=== PATIENT | male | born 2000 | race Caucasian/White ===

== ENCOUNTER 2018-05-16 13:18 | Emergency (ER) | payer OTHER ==
[~2018-05-16] VITALS: Ht 190.5 cm; Wt 82.0 kg
[2018-05-16 14:33] LABS: BASOPHILS % 0.4 % (0.0-2.0); EOSINOPHILS % 0.4 % (0.0-5.0); HEMATOCRIT. 46.2 % (42.0-52.0); HEMOGLOBIN. 15.7 g/dL (14.0-18.0); LYMPHOCYTES % 17.1 % (20.0-50.0); MEAN CORPUSCULAR HEMOGLOBIN 30.5 pg (28.0-32.0); MEAN CORPUSCULAR VOLUME 89.8 fL (80.0-94.0); MEAN PLATELET VOLUME 7.5 fl (7.4-10.4); NEUTROPHILS % 77.1 % (40.0-76.0); PLATELET 265 x1000/uL (130-400); RED BLOOD CELL COUNT 5.15 mill/uL (4.7-6.1); RED CELL DISTRIBUTION WIDTH 13.8 % (11.6-14.6)
[2018-05-16 14:38] LABS: CHLORIDE 107 mEq/L (98-107)
[2018-05-16 14:42] LABS: ETHANOL BLOOD < 10 mg/dL
[2018-05-16 21:29] LABS: CLARITY URINE TURBID (CLEAR); COLOR URINE YELLOW (YELLOW); KETONES URINE TRACE (NEGATIVE); LEUKOCYTE ESTERASE URINE NEGATIVE (NEGATIVE); NITRITE URINE NEGATIVE (NEGATIVE); OCCULT BLOOD URINE NEGATIVE (NEGATIVE); PROTEIN URINE NEGATIVE (NEGATIVE); SPECIFIC GRAVITY URINE 1.022 (1.005-1.030); UROBILINOGEN URINE 0.2 E.U./dL (0.2-1.0)
[2018-05-16 21:49] LABS: *AMPHETAMINES SCREEN URINE NEGATIVE (NEGATIVE); *BARBITURATES SCREEN URINE NEGATIVE (NEGATIVE); *BENZODIAZEPINES SCREEN URINE NEGATIVE (NEGATIVE); CANNABINOID URINE SCREEN PRESUMTIVE POSITIVE (NEGATIVE); PHENCYCLIDINE URINE SCREEN NEGATIVE (NEGATIVE)
[2018-05-16 21:50] LABS: *COCAINE SCREEN URINE NEGATIVE (NEGATIVE); METHADONE URINE SCREEN NEGATIVE (NEGATIVE); OPIATES URINE SCREEN NEGATIVE (NEGATIVE)
[2018-05-17 16:50] VITALS: BP 122/84
== END 2018-05-17 17:05 | disposition home or self-care (01) ==
LOC: ER 13:18
DX: F32.9 Major depressive disorder, single episode, unspecified (principal); R45.851 Suicidal ideations
CPT/HCPCS: 36415; 80053; 80305; 80307; 80329; 81003; 85025; 99284; G0482; Z7610